=== PATIENT | female | born 1980 | race Caucasian/White ===

== ENCOUNTER 2019-12-25 15:13 | Emergency (ER) | payer MEDICAID ==
[~2019-12-25] VITALS: Ht 165.1 cm; Wt 61.7 kg
--- NOTE | 2019-12-25 15:37 | NUR ---
PT BIBRA FROM HOME C/O OVERDOSE ON XANAX AND ALCOHOL, DENIES SI/HI, PT IS AAOX3, NOT IN RESPIRATORY DISTRESS, HOOKED TO CADIAC MONITOR, KEPT RESTED AND COMFORTABLE, WILL CONTINUE TO MONITOR.
--- NOTE | 2019-12-25 15:39 | NUR ---
SEEN AND EXAMINED BY
--- NOTE | 2019-12-25 15:41 | NUR ---
URINE SPECIMEN COLLECTED AND SENT TO LAB.
--- NOTE | 2019-12-25 15:45 | NUR ---
ER PHLEB AT BEDSIDE FOR BLOOD DRAW.
[2019-12-25 15:53] LABS: APPEARANCE,URINE CLEAR (CLEAR); BILIRUBIN,URINE NEGATIVE (NEGATIVE); BLOOD, URINE 2+ Ery/uL (NEGATIVE); COLOR,URINE YELLOW (YELLOW); KETONES,URINE NEGATIVE (NEGATIVE); LEUKOCYTE ESTERASE ,URINE NEGATIVE (NEGATIVE); NITRITE, URINE NEGATIVE (NEGATIVE); PROTEIN,URINE NEGATIVE (NEGATIVE); UGLUCOSE NEGATIVE (NEGATIVE); UROBILINOGEN,URINE 0.2 EU/dL (0.2)
[2019-12-25 15:56] LABS: BASOPHILS # (AUTO) 0.1 /CMM (0.0-0.2); EOSINOPHILS % (AUTO) 0.1 % (0.0-6.0); HEMATOCRIT 41 % (33-45); HEMOGLOBIN 13.9 g/dL (11.5-14.8); LYMPHOCYTES % (AUTO) 49.2 % (20.0-44.0); MEAN CORPUSCULAR HGB CONC 34 g/dl (31.0-36.0); MEAN CORPUSCULAR VOLUME 91 fL (82-100); MONOCYTES # (AUTO) 0.3 /CMM (0.1-1.30); MONOCYTES % (AUTO) 4.9 % (2.0-12.0); NEUTROPHILS # (AUTO) 2.8 /CMM (1.8-8.9); NEUTROPHILS % (AUTO) 44.8 % (43.0-81.0); PLATELET COUNT (AUTO) 185 /CMM (150-450); RED BLOOD CELL COUNT(AUTO) 4.54 MIL/uL (4.0-5.2); WHITE BLOOD COUNT (AUTO) 6.2 K/uL (4.3-11.0)
[2019-12-25 15:59] LABS: BACTERIA,URINE Rare /HPF (None Seen); SQUAMOUS EPITHELIAL CELL,UR Few /HPF (None Seen); WBC,URINE 0-2 /HPF (0-3)
[2019-12-25 16:09] LABS: CALCIUM, SERUM 8.5 mg/dL (8.5-10.1); CREATININE 0.7 mg/dL (0.6-1.3); POTASSIUM 3.4 mmol/L (3.5-5.1)
[2019-12-25 16:21] LABS: ALBUMIN 3.8 g/dL (3.4-5.0); BILIRUBIN,DIRECT 0.3 mg/dL (0.0-0.2); BILIRUBIN,TOTAL 1.4 mg/dL (0.2-1.0); TOTAL PROTEIN, SERUM 6.8 g/dL (6.4-8.2)
--- NOTE | 2019-12-25 19:09 | NUR ---
report given to george jones for [facility].
--- NOTE | 2019-12-25 19:42 | NUR ---
PER MD, ANOTHER ALCOHOL LEVEL AT MIDNIGHT.
--- NOTE | 2019-12-25 19:53 | NUR ---
Patient is resting comfortably in bed. Easily aroused. VSS.
--- NOTE | 2019-12-25 20:32 | NUR ---
PT CALLED JACOB[facility] ALVARADO [phone]
--- NOTE | 2019-12-25 20:39 | NUR ---
Patient is resting comfortably in bed. Easily aroused. VSS. Pt was told the plan (We will wait until 0000 to redraw alcohol level.) Pt was also told that I spoke to the patient.
--- NOTE | 2019-12-26 02:51 | NUR ---
CALLED [employer] FOR EVALAUTION
--- NOTE | 2019-12-26 03:52 | NUR ---
[employer] [employer] AT BEDSIDE FOR EVALUATION
--- NOTE | 2019-12-26 04:28 | NUR ---
PT ambulates with steady gait, RR even and unlabored, VSS. Patient discharged to home in stable condition. Written and verbal after care instructions given. Patient verbalizes understanding of instruction.
[2019-12-26 04:31] VITALS: BP 122/74
== END 2019-12-26 04:31 | disposition home or self-care (01) ==
LOC: ER 15:21
DX: T42.4X1A Poisoning by benzodiazepines, accidental (unintentional), initial encounter (principal); F10.129 Alcohol abuse with intoxication, unspecified; Y92.89 Other specified places as the place of occurrence of the external cause; Y90.8 Blood alcohol level of 240 mg/100 ml or more
CPT/HCPCS: 36415 ×2; 80048; 80076; 80305; 80307 ×3; 80329; 81001; 84703; 85025; 99285; G0480; 81000-TC